=== PATIENT | male | born 1955 | race Caucasian/White ===

== ENCOUNTER 2021-02-11 09:40 | Outpatient (CLI) | payer MEDICARE, SELFPAY ==
--- NOTE | ~2021-02-11 | NM_ITS ---
EXAMINATION: NM halle stress w perfusion DATE: 02/11/2021 13:07 INDICATION: Shortness of breath TECHNIQUE: Rest images were obtained following intravenous administration of 9.1 mCi Tc99m tetrofosmi n (Myoview). The patient was infused intravenously with Lexiscan (Regadenoson). Then, 30 mCi Tc99m te trofosmin (Myoview) was administered intravenously, and stress images were obtained. Data was reconst ructed into short axis and horizontal and vertical long axis SPECT images. Gated SPECT images were al so obtained. COMPARISON: None. FINDINGS: Small mild fixed perfusion defect consistent with infarct involving the mid inferolateral a nd basilar inferolateral segments and the circumflex coronary artery vascular distribution. There is normal left ventricular chamber size, wall motion and ejection fraction. Left ventricular ejection fraction measures 47%. IMPRESSION: 1. Mild nonreversible infarct involving the circumflex coronary artery vascular distribution in the m id inferolateral and basilar inferolateral segments. No reversible ischemia. 2. Left ventricular ejection fraction measuring 47%. Reviewed, dictated and finalized at location A. IMPRESSION: 1. Mild nonreversible infarct involving the circumflex coronary artery vascular distribution in the mid inferolateral and basilar inferolateral segments. No r eversible ischemia. 2. Left ventricular ejection fraction measuring 47%.
--- NOTE | 2021-02-11 09:46 | EST_ITS ---
Patient Info Name: Ayaan Acosta Age: 65 years : 1955 Gender: Male Ht: 72 in Wt: 270 lbs BSA: 2.54 m2 Exam Date: 02/11/2021 11:13 AM Exam Location: [facility] Stress Patient Status: Outpatient Admit Date: 02/11/2021 Staff Ordering Physician: Shakir Glasgow PA-C Attending Provider: Shakir Glasgow PA-C Exercise Technologist: Heidi Sommer RDCS Exercise Physician: Arun Francis DO Exam Type: CA stress halle w NM Study Info Indications R06.02 - Shortness of breath A regadenoson stress test was performed. Summary 1. 1. Negative lexiscan stress test for ischemic ST changes by ECG criteria. 2. 2. Baseline hypertension. 3. 3. Nuclear scan to follow and will be reported separately. Please correlate with it. 4. 4. Patient informed of the above results. Protocol: Lexiscan Stress ECG Details Stage: REST Duration (min): 6 min : 24 sec HR (bpm): 59 SBP (mmHg): 204 DBP (mmHg): 113 Stage: REST Duration (min): 14 min : 55 sec HR (bpm): 57 SBP (mmHg): 204 DBP (mmHg): 113 Stage: STAGE 1 Duration (min): 1 min : 0 sec HR (bpm): 70 SBP (mmHg): 204 DBP (mmHg): 113 Stage: RECOVERY Duration (min): 1 min : 0 sec HR (bpm): 83 SBP (mmHg): 202 DBP (mmHg): 105 Stage: RECOVERY Duration (min): 2 min : 0 sec HR (bpm): 78 SBP (mmHg): 225 DBP (mmHg): 109 Stage: RECOVERY Duration (min): 3 min : 0 sec HR (bpm): 75 SBP (mmHg): 215 DBP (mmHg): 110 Stage: RECOVERY Duration (min): 4 min : 0 sec HR (bpm): 76 SBP (mmHg): 215 DBP (mmHg): 110 Stage: RECOVERY Duration (min): 5 min : 0 sec HR (bpm): 74 SBP (mmHg): 215 DBP (mmHg): 110 Stage: RECOVERY Duration (min): 6 min : 0 sec HR (bpm): 71 SBP (mmHg): 222 DBP (mmHg): 113 Stage: RECOVERY Duration (min): 7 min : 0 sec HR (bpm): 70 SBP (mmHg): 209 DBP (mmHg): 115 Stage: RECOVERY Duration (min): 7 min : 13 sec HR (bpm): 72 SBP (mmHg): 209 DBP (mmHg): 115 Rest HR: 57 bpm Peak HR: 84 bpm Rest Sys BP: 204 mmHg Peak Sys BP: 225 mmHg Max Pred HR: 153 bpm % Max Pred HR: 55 % Target HR: 130 bpm Max RPP: 18,900 bpm*mmHg Termination Reason: Completed protocol Cardiac Symptoms: None Total Time: 1 min : 0 sec Rest Jhaveri BP: 113 mmHg Peak Jhaveri BP: 109 mmHg Total Dose: 0.4 mg Resting ECG Sinus bradycardia, cannot r/o septal infarct, age indeterminate. Stress ECG No ST changes. Arrhythmias None. Report Signatures
== END 2021-02-11 09:41 | disposition home or self-care (01) ==
PROVIDERS: PCP Internal Medicine; Visit Provider Physician Assistant
DX: R06.00 Dyspnea, unspecified (principal); R06.02 Shortness of breath
CPT/HCPCS: 78452; 93017; A9502; J2785

== ENCOUNTER 2021-03-01 08:49 | Outpatient (CLI) | payer MEDICARE, SELFPAY ==
--- NOTE | 2021-03-13 13:10 | WPDHOMESLEEP ---
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 His doctor recommended a sleep study with this history of nocturia and other co-morbidities including hypertension, GERD, and depression. For several months he has had episodes of waking to go to the bathroom 2 or 3 times per night. He does not awaken from sleep feeling short of breath. He rarely awakens at night with heartburn, belching or coughing. He occasionally snores and occasionally is loud enough that others complain about it. He does not have trouble sleep with a cold. He does not wake up gasping for breath at night. He does not have breathing problems at night observed by others. He occasionally sweats excessively at night. He does not notice his heart pounding or beating irregularly night. He occasionally falls asleep during the day, never falls asleep involuntarily. He occasionally falls asleep while driving. He occasionally falls asleep while exerting physical effort. He does not have loss of muscle tone with strong emotion. He does not have daytime difficulties due to excessive sleepiness because he currently is retired. He does not feel paralyzed on waking or falling asleep. He denies having vivid dreamlike scenes upon awakening or falling asleep. He does not feel afraid to go to sleep. He does not have nightmares. He does not remember his dreams. He occasionally has racing thoughts. He constantly feels sad or depressed. He occasionally has anxiety. He does not have muscular tension. He occasionally notices parts his body jerking. He does not kick at night. He occasionally has crawling and aching feelings in his legs. He occasionally experiences leg pain at night. He denies having morning jaw pain and denies grinding his teeth during sleep. He occasionally has bothered by pain during the day, occasionally is awakened by pain at night and occasionally wakes up feeling stiff in the morning. He occasionally wakes up with sore achy muscles and pain in the neck and spine. Normal bedtime is 8:30 p.m. falling asleep within 10 minutes, waking 2 times sometimes 3 times at night to urinate. He is able to return to sleep easily. He wakes the morning at 4:00 a.m.. On the weekends, he goes to bed later, 10:00 p.m. and wakes at 10:00 a.m.. He estimates on average getting 5-6 hours of sleep at night. He takes naps on the weekends. He is not refreshed after a short nap. He feels better in the evening compared other times of day. Habits: No tobacco. No caffeine, alcohol or recreational drugs. [facility] Past Medical History Medical History (Updated 03/13/21 @ 13:18 by Reina Maya MD) Carpal tunnel syndrome Depression Gastro-esophageal reflux disease without esophagitis Hyperlipidemia Hypertension Hypothyroidism Surgical History Surgical History History of tonsillectomy History of total left knee replacement (TKR) Family History Family History Father Family history of lung cancer, Onset Age: 56 Patient's father is Mother Family history of dementia Family history of heart disease in male family member before age 55 Social History Social History Smoking status: Never smoker Second hand tobacco smoke exposure: Yes ( in the home) Alcohol intake: never Substance use: never Medications Home Medications Medication Instructions Recorded Confirmed Type carvedilol 25 mg tablet 25 mg PO Q12H #60
[2021-03-13 13:20] VITALS: BMI 36.6
== END 2021-03-05 10:55 | disposition home or self-care (01) ==
LOC: ANHCSM 03-05 08:49
PROVIDERS: PCP Internal Medicine; Visit Provider Physician Assistant
DX: G47.33 Obstructive sleep apnea (adult) (pediatric) (principal); G47.10 Hypersomnia, unspecified; E66.9 Obesity, unspecified; Z68.36 Body mass index [BMI] 36.0-36.9, adult
CPT/HCPCS: 95806

== ENCOUNTER 2021-04-12 08:50 | Outpatient (CLI) | payer MEDICARE, SELFPAY ==
--- NOTE | 2021-04-29 13:27 | WPDSLEEPSTUD ---
Sleep Study Date of Study: 04/12/21 Ordering Provider: Az Quigley DO Interpreting Physician: Reina Maya MD Sleep Study Type: CPAP Titration Height: 1.83 m Weight: 138.8 kg Body Mass Index: 41.5 Neck Circumference (inches): 18 [place]: 2 Reason for Sleep Study * HST with [facility] March 01, 2021; severe obstructive sleep apnea; AHI 36; 93% of these events were obstructive and 7% were central, profound desaturation to 40% and 78 minutes, 18% of the study below 88%, snoring, average saturation is 82% which suggest underlying lung disease in addition to airway obstruction during sleep. He presents for CPAP titration. 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 His doctor recommended a sleep study with this history of nocturia and other co-morbidities including hypertension, GERD, and depression. For several months he has had episodes of waking to go to the bathroom 2 or 3 times per night. He does not awaken from sleep feeling short of breath. He rarely awakens at night with heartburn, belching or coughing. He occasionally snores and occasionally is loud enough that others complain about it. He does not have trouble sleep with a cold. He does not wake up gasping for breath at night. He does not have breathing problems at night observed by others. He occasionally sweats excessively at night. He does not notice his heart pounding or beating irregularly night. He occasionally falls asleep during the day, never falls asleep involuntarily. He occasionally falls asleep while driving. He occasionally falls asleep while exerting physical effort. He does not have loss of muscle tone with strong emotion. He does not have daytime difficulties due to excessive sleepiness because he currently is retired. He does not feel paralyzed on waking or falling asleep. He denies having vivid dreamlike scenes upon awakening or falling asleep. He does not feel afraid to go to sleep. He does not have nightmares. He does not remember his dreams. He occasionally has racing thoughts. He constantly feels sad or depressed. He occasionally has anxiety. He does not have muscular tension. He occasionally notices parts his body jerking. He does not kick at night. He occasionally has crawling and aching feelings in his legs. He occasionally experiences leg pain at night. He denies having morning jaw pain and denies grinding his teeth during sleep. He occasionally has bothered by pain during the day, occasionally is awakened by pain at night and occasionally wakes up feeling stiff in the morning. He occasionally wakes up with sore achy muscles and pain in the neck and spine. Normal bedtime is 8:30 p.m. falling asleep within 10 minutes, waking twice and sometimes 3 times at night to urinate. He is able to return to sleep easily. He wakes the morning at 4:00 a.m.. On the weekends, he goes to bed later, 10:00 p.m. and wakes at 10:00 a.m.. He estimates on average getting 5-6 hours of sleep at night. He takes naps on the weekends. He is not refreshed after a short nap. He feels better in the evening compared other times of day. Habits: No tobacco. No caffeine, alcohol or recreational drugs. [facility] Past Medical History Medical History (Updated 04/29/21 @ 13:29 by Reina Maya MD) Carpal tunnel syndrome Depression Gastro-esophageal reflux disease without esophagitis Hyperlipidemia Hypertension Hypothyroidism Obstructive sleep apnea Surgical History Surgical History History of tonsillectomy History of total left knee replacement (TKR) Family History Family History Father Family history of lung cancer, Onset Age: 56 Patient's father is Mother Family history of dementia Family history of heart disease in male family member before age 55 Social History Social His
[2021-05-02 16:52] VITALS: BMI 41.5
== END 2021-04-13 06:02 | disposition home or self-care (01) ==
LOC: ANHCSM 08:51
PROVIDERS: PCP Internal Medicine; Visit Provider Internal Medicine
DX: G47.33 Obstructive sleep apnea (adult) (pediatric) (principal)
CPT/HCPCS: 87426; 95811; C9803

== ENCOUNTER 2021-04-12 13:07 | Outpatient (CLI) | payer MEDICARE, SELFPAY ==
[2021-04-12 13:51] LABS: EDCOVIDSCREEN Negative (Negative)
== END 2021-04-12 13:08 | disposition home or self-care (01) ==
LOC: ANHSURGERY 13:12
PROVIDERS: PCP Internal Medicine; Visit Provider Internal Medicine Critical Care Medicine
DX: U07.1 COVID-19 (principal)
CPT/HCPCS: 87426; C9803

== ENCOUNTER → 2021-05-07 02:36 | Outpatient (CLI) | payer MEDICARE, SELFPAY ==
[2021-05-07 18:17] LABS: SARS-CoV-2 RNA PCR Positive
== END ==
PROVIDERS: PCP Internal Medicine; Visit Provider Internal Medicine
DX: U07.1 COVID-19 (principal); J06.9 Acute upper respiratory infection, unspecified
CPT/HCPCS: C9803; U0003; U0005

== ENCOUNTER 2021-05-09 09:00 | Outpatient (RCR) | payer MEDICARE, SELFPAY ==
[2021-05-09 09:10] VITALS: BP 105/75; PULSE 64; RESP 16; TEMP 35.5; O2SAT 91
[2021-05-09] MEDS: diphenhydrAMINE HCl CAP 25 MG CAPSULE PO (09:13)
[2021-05-09] MEDS: FAMOTIDINE 20 MG TABLET PO (09:13)
[2021-05-09] MEDS: ACETAMINOPHEN 325 MG TABLET 650 MG PO (09:13)
--- NOTE | 2021-05-09 09:36 | PC.NURSE ---
Patient instructed on covid treatment and given instruction sheets on Covid 19 discharge instruction and fact sheet on Casirivimab and Imdevimab with understanding stated to instruction. Patient instructed to get Covid injection in 3 months after this treatment. Patient instructed to take 2 Tylenol at approximately 1:30 this afternoon. Patient stated understanding to all instruction.
[2021-05-09 10:49] VITALS: BP 110/70
--- NOTE | 2021-05-10 09:06 | PC.NURSE ---
Patient states that he feels much better after covid infusion.
== END 2021-05-09 11:04 | disposition home or self-care (01) ==
LOC: AMCINF 09:00
PROVIDERS: PCP Internal Medicine; Visit Provider Internal Medicine Hematology & Oncology
DX: Z23 Encounter for immunization (principal); U07.1 COVID-19
CPT/HCPCS: A9270; J7050; M0243

== ENCOUNTER → 2021-06-18 03:35 | Outpatient (CLI) | payer MEDICARE, SELFPAY ==
[2021-06-18 20:46] LABS: SARS-CoV-2 RNA PCR Negative
== END ==
PROVIDERS: PCP Internal Medicine; Visit Provider Internal Medicine Critical Care Medicine
DX: Z20.822 Contact with and (suspected) exposure to COVID-19 (principal)
CPT/HCPCS: C9803; U0003; U0005

== ENCOUNTER → 2021-06-21 07:58 | Outpatient (CLI) | payer MEDICARE, SELFPAY ==
--- NOTE | 2021-07-05 00:56 | WPDSLEEPSTUD ---
Sleep Study Date of Study: 06/21/21 Ordering Provider: Az Quigley DO Interpreting Physician: Reina Maya MD Sleep Study Type: BiPAP Titration Height: 1.83 m Weight: 113.398 kg Body Mass Index: 33.9 Neck Circumference (inches): 19 [place]: 3 Reason for Sleep Study * HST with [facility] March 01, 2021; severe obstructive sleep apnea; AHI 36; 93% of these events were obstructive and 7% were central, profound desaturation to 40% and 78 minutes, 18% of the study below 88%, snoring, average saturation is 82% which suggest underlying lung disease in addition to airway obstruction during sleep. He presents for CPAP titration. * full night CPAP /BiPAP April 12, 2021; titration shows improvement without optimal pressure; he was tested on CPAP pressures 5 cm through 16 cm with O2 at 1-2 L/min at pressures 5-6 cm, and Bilevel pressures 18/14 and 20/16 with persistent hypoxemia and snoring. He needs to return to the sleep lab for bilevel titration starting at 18/14 with a 30 minute ramp with a sleep aid available if needed for him to take at sleep onset. 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 His doctor recommended a sleep study with this history of nocturia and other co-morbidities including hypertension, GERD, and depression. For several months he has had episodes of waking to go to the bathroom 2 or 3 times per night. He does not awaken from sleep feeling short of breath. He rarely awakens at night with heartburn, belching or coughing. He occasionally snores and occasionally is loud enough that others complain about it. He does not have trouble sleep with a cold. He does not wake up gasping for breath at night. He does not have breathing problems at night observed by others. He occasionally sweats excessively at night. He does not notice his heart pounding or beating irregularly night. He occasionally falls asleep during the day, never falls asleep involuntarily. He occasionally falls asleep while driving. He occasionally falls asleep while exerting physical effort. He does not have loss of muscle tone with strong emotion. He does not have daytime difficulties due to excessive sleepiness because he currently is retired. He does not feel paralyzed on waking or falling asleep. He denies having vivid dreamlike scenes upon awakening or falling asleep. He does not feel afraid to go to sleep. He does not have nightmares. He does not remember his dreams. He occasionally has racing thoughts. He constantly feels sad or depressed. He occasionally has anxiety. He does not have muscular tension. He occasionally notices parts his body jerking. He does not kick at night. He occasionally has crawling and aching feelings in his legs. He occasionally experiences leg pain at night. He denies having morning jaw pain and denies grinding his teeth during sleep. He occasionally has bothered by pain during the day, occasionally is awakened by pain at night and occasionally wakes up feeling stiff in the morning. He occasionally wakes up with sore achy muscles and pain in the neck and spine. Normal bedtime is 8:30 p.m. falling asleep within 10 minutes, waking twice and sometimes 3 times at night to urinate. He is able to return to sleep easily. He wakes the morning at 4:00 a.m.. On the weekends, he goes to bed later, 10:00 p.m. and wakes at 10:00 a.m.. He estimates on average getting 5-6 hours of sleep at night. He takes naps on the weekends. He is not refreshed after a short nap. He feels better in the evening compared other times of day. Habits: No tobacco, caffeine, alcohol, or recreational drugs. [facility] Past Medical History Medical History Carpal tunnel syndrome Depression Gastro-esophageal reflux disease without esophagitis Hyperlipidemia Hypertension Hypothyroidism Obstructive sleep apnea Surgical History Surgical History (Reviewed 07/05/21
[2021-07-05 00:57] VITALS: BMI 33.9
== END ==
LOC: ANHCSM 08:00
PROVIDERS: PCP Internal Medicine; Visit Provider Internal Medicine
DX: G47.30 Sleep apnea, unspecified (principal)
CPT/HCPCS: 95811

== ENCOUNTER 2024-01-06 10:00 | Outpatient (RCR) | payer MEDICARE, SELFPAY ==
--- NOTE | 2023-12-03 13:30 | OPREHPOC ---
Outpatient Therapy Plan of Care This is a Multidisciplinary Plan of Care that may contain components documented by all disciplines (PT, OT, and ST.) PT Problem 1 PT Problem #1 Knowledge Deficit PT Goal 1 Goal 1*indep with HEP PT Problem 2 PT Problem #2 Pain PT Goal 1 Goal 1* pain at worst 4/10 2* self assessment LE functional scale of 20% limitation PT Problem 3 PT Problem #3 Impaired Flexibility PT Goal 1 Goal increase flexibility of R hip/knee to improve mobility and position of knee: 1* hamstring length with supine SLR 50' 2* anterior hip/quad length with prone knee flexion 100' PT Problem 4 PT Problem #4 Impaired Strength PT Goal 1 Goal increase strength of R LE to improve gait and mobility skills: pt perform 20 reps with good control 1* side lying hip abduction 2* side lying hip adduction 3* prone hip extension 4* single leg standing 20 seconds with good control
--- NOTE | 2023-12-03 13:31 | PTOPEVAL1 ---
Assessment and note entered by Adriana Campos, PT Evaluation Information Assessment Status Evaluation Diagnosis R knee OA Onset Jul 2023 Subjective Information chronic issues with R knee pain; worse past 4 months, more problems with walking and doing things; dr did knee injection 2 days ago and steroid pill- knee less pain; has had the L TKR- over 5 yr ago; thinks he may need R TKR; does not do any fitness or exercises for knee/LEs Activity: retired- [employer]; indep with all home and self care tasks, live alone. does not use assistive device. Reported Pain Level Pain Score Self Report Additional Pain Score Comments pain rating past week 0-6/10; hurts all over knee increase pain: walking about 30 minutes decrease pain: sit, rest; sleeping disrupted by knee pain---awaken 3/ night due to pain the injection received 2 days ago and new script for steroid pill have decreased his pain Assessment PT Clinical Summary Ayaan has the diagnosis of R knee OA. He had an injection and pain has decreased. In the past, he has had L TKR and thinks his R knee is ready for replacement. LE functional scale self rating is 31% limitation in activity level. His walking is limited due to pain in knee. With the evaluation: he has tightness of R hamstring, quad/anterior hip musculature with weakness over hip abduction, hip adduction, hip extension motions and single leg standing tolerance. his 5 reps sit/stand time was WNL but without good control and 2 minute walking test distance of 460'; his R knee AROM in sitting is ( -10') to 105', without an increase in pain. Skilled PT services are indicated to increase flexibility and strength of R hip and knee; modalities PRN for pain control with education for HEP. Plan of Care Interventions Electrical Stimulation,Hot Pack/Cold Pack,Manual Therapy,Neuro Re-education,Patient Education,Therapeutic Activities,Therapeutic Exercise,Ult
--- NOTE | 2024-01-06 10:43 | PTOPDC ---
Assessment and note entered by Adriana Campos, PT Discharge Information Assessment Status Discharge Diagnosis R knee OA Onset Jul 2023 Subjective Information problems getting up and out of bed, feel like knee going to give out on me; to see this afternoon; thinking I need a knee replacement; Reported Pain Level Pain Score Self Report Additional Pain Score Comments pain range in the past week 0-6/10; walking about 15 minutes with shopping and then need to sit down; sleeping varies, some problems with knee pain and some problems staying asleep; Assessment PT Clinical Summary Ayaan has received 7 PT sessions. Compared to the initial evaluation: pain rating the same at 0-6/10; reported walking tolerance decreased from 30 minutes to 15 minutes; increase strength with mat exercises; increase hamstring flexibility, self assessment LE functional scale is worse, from 31 to 49% limitation; active R knee ROM in sitting (-15') to 110' with pain at both end ranges of motion. Education completed for HEP. The goals were partially met. Discharge PT services. Plan of Care PT Services Indicated No
== END 2024-01-06 12:32 | disposition home or self-care (01) ==
LOC: ANHPT 10:00
PROVIDERS: PCP Internal Medicine; Visit Provider Orthopaedic Surgery
DX: M17.11 Unilateral primary osteoarthritis, right knee (principal)
CPT/HCPCS: 97110; 97140; 97161; 97530

== ENCOUNTER 2024-01-28 09:46 | Outpatient (CLI) | payer MEDICARE, SELFPAY ==
--- NOTE | 2024-01-28 10:46 | ECG_ITS ---
SEE SCANNED COPY FOR CONFIRMED REPORT MTDD
[2024-01-28 11:13] LABS: Basophils Percent Auto 0.8 % (0.2-1.2); Eosinophils Absolute Auto 0.4 K/mm3 (0-0.3); Eosinophils Percent Auto 7.2 % (0-4.4); Hemoglobin 14.1 g/dL (14.0-18.0); Immature Granulocyte Absolute 0.01 K/mm3 (0.00-0.031); Immature Granulocyte Percent A 0.2 % (0-0.5); Lymphocytes Absolute Auto 0.83 K/mm3 (0.9-3.2); Mean Corpuscular HGB Conc 34.4 g/dl (32-36); Mean Corpuscular Hemoglobin 30.9 pg (26-34); Mean Corpuscular Volume 89.9 fl (80-100); Mean Platelet Volume 8.6 fl (7.4-10.4); Monocytes Absolute Auto 0.6 K/mm3 (0.1-0.6); Monocytes Percent Auto 12.3 % (2.6-8.5); Neutrophils Absolute Auto 3.1 K/mm3 (1.3-6.7); Neutrophils Percent Auto 62.5 % (45.5-73.1); Platelet Count Result 178 k/mm3 (150-375); Red Blood Count 4.56 M/mm3 (4.6-6.20); Red Cell Distribution Width 13.1 % (11.5-14.5); White Blood Count 4.9 K/mm3 (4.5-10.0)
[2024-01-28 11:25] LABS: Albumin Level 4.3 g/dL (3.5-5.1); Estimated Glomerular Filt Rate 37; Glucose 114 mg/dL (65-110)
[2024-01-28 11:28] LABS: Urine Cotinine NEGATIVE
[2024-01-28 11:30] LABS: Hemoglobin A1C 5.6 % (<5.7)
== END 2024-01-28 09:47 | disposition home or self-care (01) ==
PROVIDERS: PCP Internal Medicine; Visit Provider Orthopaedic Surgery
DX: Z01.818 Encounter for other preprocedural examination (principal); M17.11 Unilateral primary osteoarthritis, right knee; R00.1 Bradycardia, unspecified; R94.31 Abnormal electrocardiogram [ECG] [EKG]
CPT/HCPCS: 80307; 82040; 82565; 82947; 83036; 85025; 93005

== ENCOUNTER 2024-02-18 13:58 | Outpatient (CLI) | payer MEDICARE, SELFPAY ==
--- NOTE | ~2024-02-18 | US_ITS ---
EXAMINATION: US renal BI DATE: 02/18/2024 14:16 INDICATION: Chronic kidney disease stage III B. TECHNIQUE: Multiple ultrasound grayscale images of the kidneys were obtained. COMPARISON: None. FINDINGS: The right kidney measures 11.0 x 4.8 x 5.3 cm. The left kidney measures 11.6 x 4.1 x 4.6 cm. The kidn eys demonstrate normal parenchymal echogenicity. There are cysts in the kidneys measuring up to 4.8 c m on the left. There is no hydronephrosis. The bladder is normal. There is a 2.1 cm mass in the left upper quadrant. IMPRESSION: 1. Normal kidney sizes. No hydronephrosis. 2. 2.1 cm mass in the left upper quadrant. The differential diagnosis includes enlarged lymph node, p eritoneal metastatic disease, thrombosed aneurysm, and splenule. Abdomen CT without contrast is recom mended given the patient's decreased kidney function. Reviewed, dictated and finalized at location E. IMPRESSION: 1. Normal kidney sizes. No hydronephrosis. 2. 2.1 cm mass in the left upper quadrant. The differential diagnosis includes enlarged lymph node, peritoneal metastatic disease, thrombosed aneurysm, and sp lenule. Abdomen CT without contrast is recommended given the patient's decrease d kidney function.
== END 2024-02-18 13:59 ==
LOC: GOSHIMG 14:00
PROVIDERS: PCP Internal Medicine; Visit Provider Internal Medicine Nephrology
DX: N28.89 Other specified disorders of kidney and ureter (principal); N18.32 Chronic kidney disease, stage 3b
CPT/HCPCS: 76775

== ENCOUNTER 2024-02-25 13:38 | Outpatient (CLI) | payer MEDICARE, SELFPAY ==
--- NOTE | ~2024-02-25 | CT_ITS ---
EXAMINATION: CT abdomen wo con DATE: 02/25/2024 13:56 INDICATION: Abnormal radiologic findings on renal ultrasound TECHNIQUE: Computed tomography (CT) of the abdomen and pelvis was performed without intravenous contr ast. Automated exposure control and iterative reconstruction technique were employed. The dose-length product was 836.60 mGy-cm. COMPARISON: None FINDINGS: Lung bases are clear. Heart size is normal. Aortic valve and mitral annular calcification. Calcified right hilar lymph nodes consistent with old granulomatous disease. Liver, gallbladder, spleen and yuko ateral adrenal glands are normal. 2.6 x 2.1 cm cystic lesion at the tail of pancreas. Mild to moderat e likely age-related bilateral renal cortical atrophy with bilateral fluid attenuation renal cysts th e largest on the left measuring 4.9 cm. Visualized portion of the bowels including the appendix are n ormal. No pathologically enlarged abdominal or pelvic lymphadenopathy. IMPRESSION: 1. 2.6 x 2.1 cm cystic lesion at the tail of the pancreas which appears simple on both CT and prior u ltrasound. Recommend 6 month follow-up pre and postcontrast MRI for pancreas protocol CT. Reviewed, dictated and finalized at location A. IMPRESSION: 1. 2.6 x 2.1 cm cystic lesion at the tail of the pancreas which appears simple on both CT and prior ultrasound. Recommend 6 month follow-up pre and postcontra st MRI for pancreas protocol CT.
== END 2024-02-25 13:39 ==
LOC: GOSHIMG 13:39
PROVIDERS: PCP Internal Medicine; Visit Provider Internal Medicine
DX: K86.2 Cyst of pancreas (principal); R93.421 Abnormal radiologic findings on diagnostic imaging of right kidney; R93.422 Abnormal radiologic findings on diagnostic imaging of left kidney
CPT/HCPCS: 74150

== ENCOUNTER 2024-03-15 08:10 | Outpatient (CLI) | payer MEDICARE, SELFPAY ==
[2024-03-15 08:46] LABS: Estimated Glomerular Filt Rate 35
[2024-03-15 08:58] LABS: Prothrombin Time 13.4 Seconds (11.1-14.7)
[2024-03-15 08:59] LABS: Partial Thromboplastin Time 35.6 Seconds (22.3-36.8)
== END 2024-03-15 08:11 | disposition home or self-care (01) ==
PROVIDERS: Anesthesiology; PCP Internal Medicine; Visit Provider Orthopaedic Surgery
DX: Z01.812 Encounter for preprocedural laboratory examination (principal); M17.11 Unilateral primary osteoarthritis, right knee; N18.9 Chronic kidney disease, unspecified
CPT/HCPCS: 36415; 82565; 85610; 85730; 86850; 86900; 86901

== ENCOUNTER 2024-03-21 00:54 | Day surgery (SDC) | payer MEDICARE, SELFPAY ==
[2024-01-28 10:01] VITALS: BMI 38.9
--- NOTE | 2024-01-28 10:23 | PC.NURSE ---
Report to the Outpatient Waiting Room, entrance under the green pavilion located off [facility], at time _0700 on date _02/17/24 . Planned Procedure Time: 0900 . Time changes happen often and if your time is changed the preop area will call you the afternoon before. - You and your visitor will be asked to self-screen and do not enter if you have any COVID symptoms. - A mask is optional within the hospital at this time. Patients may have clear liquids (water, carbonated beverages, clear teas, apple juice) until 3 hours prior to surgery( 6:00 AM) with a maximum of 20 ounces. - No food from midnight until time of surgery - Infants may have breast milk until 4 hours before surgery, formula 6 hours prior to surgery. - Children will be allowed to drink immediately following surgery. If applicable, please bring a bottle or sippy cup to assist with drinking. Juice, water, soda, and popsicles are readily available. For infants on formula, please bring formula the day of surgery. Pacifiers are allowed. Take the following medications with a SIP of water the morning of surgery: ___CARVEDILOL,LEVOTHYROXINE DO NOT STOP ANY OF YOUR OTHER PRESCRIPTION MEDICATIONS PRIOR TO SURGERY ?EXCEPT THE FOLLOWING Medications to discontinue per physician __HOLD NABUMETONE PER DR CHADWICK. TOTAL JOINT CLASS 02/03/24 AT 10 AM Please no make-up, nail bolivian, hairspray, perfume, deodorant, or body powder the day of surgery. No jewelry (including any body piercings) or valuables the day of surgery, leave them at home. Please take a shower or bath the night before, or the morning of, surgery with an antibacterial soap. Wear comfortable, loose fitting clothing. Children are encouraged to wear pajamas. - Jewelry must be removed prior to entering the operating room. Rings and piercings that are not removed may be cut off. - The hospital will not accept responsibility for valuables. - Please leave all valuables, including medications, at home the day of surgery. If you are going home after surgery, a licensed vibratory pile driver must drive you home. - NO public transportation without another adult if you receive anesthesia. - We recommend that an adult stay with you for 24 hours following discharge. - We also recommend that you do not drive, make important decision, drink alcoholic beverages, or take any drugs that were not prescribed by your health care provider for at least 24 hours after your discharge time. Follow any additional instructions given to you from your surgeon. If you or anyone in your household have experienced Covid symptoms in the past week, please notify your surgeon or the nurse liaison at the phone number below for possible testing. VERBAL AND WRITTEN instructions given to __PATIENT and asked if any additional questions and then verbalized understanding. Patient advised to call surgeon office or pre surgery nurse liaison [phone] if any additional questions.
[2024-01-28 10:45] VITALS: BP 188/98; PULSE 65; RESP 18; TEMP 36.9; O2SAT 97
--- NOTE | 2024-03-10 10:42 | PC.NURSE ---
Report to the Outpatient Waiting Room, entrance under the green pavilion located off [facility], at time _9:30 AM on date _03/21/24 . Planned Procedure Time: __11:30 AM . Time changes happen often and if your time is changed the preop area will call you the afternoon before. - You and your visitor will be asked to self-screen and do not enter if you have any COVID symptoms. - A mask is optional within the hospital at this time. Patients may have clear liquids (water, carbonated beverages, clear teas, apple juice) until 3 hours prior to surgery( 8:30 AM) with a maximum of 20 ounces. - No food from midnight until time of surgery - Infants may have breast milk until 4 hours before surgery, infant formula 6 hours prior to surgery. - Children will be allowed to drink immediately following surgery. If applicable, please bring a bottle or sippy cup to assist with drinking. Juice, water, soda, and popsicles are readily available. For infants on formula, please bring formula the day of surgery. Pacifiers are allowed. Take the following medications with a SIP of water the morning of surgery: __AMLODIPINE,CARVEDILOL,LEVOTHYROXINE DO NOT STOP ANY OF YOUR OTHER PRESCRIPTION MEDICATIONS PRIOR TO SURGERY ?EXCEPT THE FOLLOWING Medications to discontinue per physician ____HOLD NABUMETONE PER DR CHADWICK, Please no make-up, nail lithuanian, hairspray, perfume, deodorant, or body powder the day of surgery. No jewelry (including any body piercings) or valuables the day of surgery, leave them at home. Please take a shower or bath the night before, or the morning of, surgery with an antibacterial soap. Wear comfortable, loose fitting clothing. Children are encouraged to wear pajamas. - Jewelry must be removed prior to entering the operating room. Rings and piercings that are not removed may be cut off. - The hospital will not accept responsibility for valuables. - Please leave all valuables, including medications, at home the day of surgery. If you are going home after surgery, a licensed motor coach bus driver must drive you home. - NO public transportation without another adult if you receive anesthesia. - We recommend that an adult stay with you for 24 hours following discharge. - We also recommend that you do not drive, make important decision, drink alcoholic beverages, or take any drugs that were not prescribed by your health care provider for at least 24 hours after your discharge time. Follow any additional instructions given to you from your surgeon. If you or anyone in your household have experienced Covid symptoms in the past week, please notify your surgeon or the nurse liaison at the phone number below for possible testing. Telephone instructions given to __PATIENT and asked if any additional questions and then verbalized understanding. Patient advised to call surgeon office or pre surgery nurse liaison [phone] if any additional questions.
[2024-03-10 10:56] VITALS: BMI 38.9
--- NOTE | 2024-03-17 18:10 | PM.IMHP ---
H&P: HPI History of Present Illness Date/Time: 03/17/24 18:10 Chief Complaint: Patient has Osteoarthritis Right Knee. He has failed conservative treatment. He has bone on bone arthritis. Review of Systems Musculoskeletal: Musculoskeletal: Reports myalgias, Reports arthralgias and Reports joint swelling PMFSH Past Medical History Medical History Carpal tunnel syndrome Depression Gastro-esophageal reflux disease without esophagitis Hyperlipidemia Hypertension Hypothyroidism Obstructive sleep apnea Surgical History Surgical History History of tonsillectomy History of total left knee replacement (TKR) Family History Family History Father Family history of lung cancer, Onset Age: 56 Patient's father is Mother Family history of dementia Family history of heart disease in male family member before age 55 Alzheimers disease Sibling No problems noted. Social History Social History (Updated 02/11/24 @ 11:53 by Marisel Hough MA) Smoking status: Never smoker Second hand tobacco smoke exposure: Yes ( was a smoker) Additional smoking assessment comments: DENIES ANY FORM OF TOBACCO USE Alcohol intake: never Substance use: never Substance use type: does not use Do You Feel Safe in your Home?: Yes Lack of Transportation: No Lack of Food: Never True Current Housing: I Have Housing Concerned About Future Housing: No Difficulty Paying Gas/Electric Bills: No Difficulty Paying for Meds: No Currently Unemployed: YES Education: High School Diploma/GED Difficulty w/ Childcare or Family Care: No Living arrangements: alone Occupation/Education: retired Additional occupation/education comments: [employer] Gender identity (if verbalized by the patient): Male Spiritual care concerns: No Meds Home Medications and Allergies Home Medications Medication Instructions Recorded Confirmed Type cyclobenzaprine 10 mg tablet 10 mg PO .HS PRN muscle spasm #30 12/07/23 03/10/24 Rx tabs omeprazole 20 mg capsule,delayed 20 mg PO DAILY #30 caps 12/07/23 03/10/24 Rx release allopurinol 300 mg tablet 300 mg PO DAILY #90 tabs 12/24/23 03/10/24 Rx ramipril 10 mg capsule 10 mg PO DAILY #90 caps 12/25/23 03/10/24 Rx rosuvastatin 5 mg tablet (Crestor) 5 mg PO DAILY #90 tabs 02/09/24 03/10/24 Rx amlodipine 5 mg tablet 5 mg PO DAILY 02/11/24 03/10/24 History carvedilol 25 mg tablet 25 mg PO Q12H #180 tabs 02/12/24 03/10/24 Rx levothyroxine 75 mcg tablet 75 mcg PO DAILY #90 tabs 03/10/24 Rx nabumetone 750 mg tablet See Rx Instructions .Route 03/10/24 Rx .COMPLEX #60 tabs rivaroxaban 10 mg tablet (Xarelto) 10 mg PO DAILY PE prophylaxis s/p 03/16/24 Rx knee replacement 10 days #10 tabs Allergies Allergy/AdvReac Type Severity Reaction Status Date / Time No Known Allergies Allergy Verified 03/10/24 10:27 Exam Narrative: ROM 5-110. Varus deformity. Patient is neurologically intact. He walks with an antalgic gait. Eyes: General: appearance normal, both eyes and all related structures Neck: Neck: supple Resp: Effort & Inspection: normal respiratory effort Cardio: Rate: regular rate Rhythm: regular rhythm Assessment and Plan Assessment and plan (1) Osteoarthritis of right knee: Code(s): M17.11 - Unilateral primary osteoarthritis, right knee Status: Acute Plan Patient has osteoarthritis Right knee. He has bone on bone changes and has failed conservative treatment. I discussed risks, benefits, limitations, and alternatives in detail. Will proceed per his request.
[2024-03-21] VITALS (16 sets, daily range): BP systolic 125–167; BP diastolic 70–90; PULSE 57–80; RESP 9–18; TEMP 35.9–36.6; O2SAT 92–100
--- NOTE | ~2024-03-21 | XR_ITS ---
EXAMINATION: [id number] DATE: 03/21/2024 10:31 INDICATION: Right total knee arthroplasty. Postop. TECHNIQUE: 2 views of right knee were obtained. COMPARISON: None. FINDINGS: There is a total right knee arthroplasty with patellar resurfacing in near-anatomic alignme nt. No fracture. There is gas in the joint and soft tissues, consistent with recent surgery. Anterior skin bubba are noted. IMPRESSION: 1. Total right knee arthroplasty in near-anatomic alignment. Reviewed, dictated and finalized at location E.
[2024-03-21] MEDS: LACTATED RINGERS 1,000 ML 30 ML IV CONT ×2 (06:46→10:13)
[2024-03-21] MEDS: ACETAMINOPHEN 500 MG TABLET 1000 MG PO (06:46)
[2024-03-21] MEDS: VANCOMYCIN 2,000 MG/NS 500 ML 2,000 MG/500 ML BAG 250 MG IVPB (07:00)
--- NOTE | 2024-03-21 07:04 | WPDHPUPDATE1 ---
History and Physical Update Update Date/Time: 03/21/24 07:04 History and Physical has been reviewed, including an updated exam of the patient. There are NO changes in the patient's condition. Risks, benefits, and alternatives have been discussed and questions answered. Patient agrees to proceed with procedure. Reiterated increased risk of infection and wound problems with selling and mild stasis changes in legs
[2024-03-21] MEDS: TRANEXAMIC ACID 1,000MG/ISO100 1,000 MG/100 ML BAG 200 MG IVPB (07:10)
--- NOTE | 2024-03-21 07:26 | WPDANESEPPF ---
Anes - Initial Pre Proc Eval Procedure: Operation Date: 03/21/24 07:30 Proposed Procedures p Right Total Knee Arthroplasty - Harsha Spence MD Date/Time: 03/21/24 07:26 Surgeon: Harsha Spence MD Pre Op Diagnosis: OA Rt Knee Patient Data Age: 68 Gender: M Height: 1.82 m Weight: 123.5 kg Last Vital Signs Temp 97.8 F 03/21/24 07:12 Pulse 57 L 03/21/24 07:12 Resp 16 03/21/24 07:12 BP 167/89 H 03/21/24 07:12 Pulse Ox 100 03/21/24 07:12 O2 Del Method Room Air 03/21/24 07:12 Allergies Allergy/AdvReac Type Severity Reaction Status Date / Time No Known Allergies Allergy Verified 03/21/24 06:16 Home Medications Medication Instructions Recorded Confirmed Type cyclobenzaprine 10 mg tablet 10 mg PO .HS PRN muscle spasm #30 12/07/23 03/10/24 Rx tabs omeprazole 20 mg capsule,delayed 20 mg PO DAILY #30 caps 12/07/23 03/21/24 Rx release allopurinol 300 mg tablet 300 mg PO DAILY #90 tabs 12/24/23 03/10/24 Rx ramipril 10 mg capsule 10 mg PO DAILY #90 caps 12/25/23 03/21/24 Rx rosuvastatin 5 mg tablet (Crestor) 5 mg PO DAILY #90 tabs 02/09/24 03/21/24 Rx amlodipine 5 mg tablet 5 mg PO DAILY 02/11/24 03/21/24 History carvedilol 25 mg tablet 25 mg PO Q12H #180 tabs 02/12/24 03/21/24 Rx levothyroxine 75 mcg tablet 75 mcg PO DAILY #90 tabs 03/10/24 03/21/24 Rx nabumetone 750 mg tablet See Rx Instructions .Route 03/10/24 03/21/24 Rx .COMPLEX #60 tabs rivaroxaban 10 mg tablet (Xarelto) 10 mg PO DAILY PE prophylaxis s/p 03/16/24 Rx knee replacement 10 days #10 tabs Patient hx anesthesia problems: none Family hx anesthesia problems: none Results Review: All pre-operative results and documents have been reviewed as part of the pre-operative evaluation. [facility] Past Medical History Medical History Carpal tunnel syndrome Depression Gastro-esophageal reflux disease without esophagitis Hyperlipidemia Hypertension Hypothyroidism Obstructive sleep apnea Surgical History Surgical History History of tonsillectomy History of total left knee replacement (TKR) Family History Family History Father Family history of lung cancer, Onset Age: 56 Patient's father is Mother Family history of dementia Family history of heart disease in male family member before age 55 Alzheimers disease Sibling No problems noted. Social History Social History Smoking status: Never smoker Second hand tobacco smoke exposure: Yes ( was a smoker) Additional smoking assessment comments: DENIES ANY FORM OF TOBACCO USE Alcohol intake: never Substance use: never Substance use type: does not use Do You Feel Safe in your Home?: Yes Lack of Transportation: No Lack of Food: Never True Current Housing: I Have Housing Concerned About Future Housing: No Difficulty Paying Gas/Electric Bills: No Difficulty Paying for Meds: No Currently Unemployed: YES Education: High School Diploma/GED Difficulty w/ Childcare or Family Care: No Living arrangements: alone Occupation/Education: retired Additional occupation/education comments: [employer] Gender identity (if verbalized by the patient): Male Spiritual care concerns: No Anes - Eval Final PreProcedure Day of Procedure 03/21/24 07:26 Patient weight: obese Heart: regular rate and rhythm Lungs: clear to auscultation Airway: Mallampati scale class II and special considerations (Teeth in very poor condition, many missing and lower incisor is loose. ) Neurological: alert and oriented Last oral intake: >/= 8 hours ASA classification: III Emergent: no Anesthetic plan: proceed Anesthesia type and monitoring: general LMA and standard monito
--- NOTE | 2024-03-21 07:29 | WPDANESPNB ---
Anes - Peripheral Nerve Block Date/Time: 03/21/24 07:29 I have discussed with the patient/family/POA the placement of a peripheral nerve block for post-operative pain management, including associated risks, benefits, complications, and side effects. Alternative methods of post-operative analgesia were detailed. Questions were solicited and answers provided to the satisfaction of the patient/family/POA. Time-Out: A pre-procedural Time-Out was completed immediately before starting the procedure and confirmed: Patient Identification, Site, Procedure, Patient Position and the Availability of Requisite Equipment. Clinical Indications: Acute post-operative pain management requested by the operative surgeon. Nerve Block Insertion Note Anes-nerve block: adductor canal right Patient position: supine Skin prep: chlorhexidine Needle: 22 gauge, stimulating, insulated echogenic needle. Needle length: 80 mm Technique: ultrasound Injectate: other (Bupiv 0.5%, 15 mls. ) Observations: tolerated well Procedure start time:: Procedure end time::
[2024-03-21] MEDS: ceFAZolin 3 GM/D5W 100 ML 100 ML IVPB (07:30)
[2024-03-21] MEDS: SODIUM CHLORIDE 0.9% IV 37.7 ML, MORPHINE SULFATE INJ (*CRX) 2 MG, ROPivacaine HCL 1% 2... INFILTRATE (08:17)
--- NOTE | 2024-03-21 09:41 | P.OP_ITS ---
Procedure Note - Detailed Date of Procedure 03/21/24 Pre-op Diagnosis Osteoarthritis RIGHT Knee Post-op Diagnosis Same Procedure Performed RIGHT total knee arthroplasty Surgeon Harsha Spence MD Puppet Maker Reta Snyder Anesthesia General Indications Pain and Arthritis Description of Procedure The patient was brought to operating room #7. A general anesthetic was administered. Placed on the operating table and sterilely prepped and draped in usual manner. A longitudinal incision was made. Tourniquet inflated to 300 mmHg for a total of 65 minutes. Dissection was carried down to the fascia. Medial parapatellar incision was made and the patella subluxated laterally. Patella cut from 30 to 20 mm and sized for a 34 mm button. The tibia was cut perpendicular to the long axis and femur cut in 5 degrees of valgus. A 72.7 femur trialed. 75 tibia was felt to fit the best. The soft tissues balanced, hemostasis obtained. All [address], 75 tibia, 72.5 femur, 34mm patella, and 10 () mm poly. Motion was 0-125 degrees with good stability in both flexion and extension. The wound was closed with #2 Vicryl, 2- 0 Vicryl and bubba. The case was much more difficult than normal because of the patient's size and stiffness of the tissues. [employer] Estimated Blood Loss 200 Drains No Packing No Pathology None sent Complications No immediate complications Condition Stable Disposition PACU [facility] Billing Surgery - Charge Forward: Surgery Billing ([id number] Total Knee)
--- NOTE | 2024-03-21 10:19 | SUR.PHASEI ---
PORTABLE XRAY OF RIGHT KNEE IN PROGRESS.
[2024-03-21] MEDS: fentaNYL CITRATE INJ (*CRX) 100 MCG/2 ML VIAL 25 MCG IV PUSH ×4 (10:33→10:57)
--- NOTE | 2024-03-21 12:08 | ADMGEN ---
This patient, Ayaan Acosta Jr., was admitted to 3 Med Surg Room 312-01. Patient/family oriented to hospital policies and general routines including ID bracelet, bed and alarms, visiting hours, pain management, procedures, bathroom and other care routines, personal items, smoking policy, room service/diet, and visiting hours. Information on how to activate the Rapid Response Team has been discussed. Patient/Family are encouraged to report perceived risks to care and to ask questions if they do not understand what they are told or what they should do.
[2024-03-21] MEDS: HYDROcodone/acetaminophen (*CRX) 5-325 MG TABLET 1 TAB PO (12:31)
--- NOTE | 2024-03-21 15:55 | WPDCN ---
Assessment and Plan Assessment and plan (1) Osteoarthritis of right knee: Code(s): M17.11 - Unilateral primary osteoarthritis, right knee Status: Acute Assessment and Plan: Postoperative day 0 status post right total knee arthroplasty. Wound care, pain control, and DVT prophylaxis deferred to Dr. Spence. (2) Hypertension: Code(s): I10 - Essential (primary) hypertension Status: Acute Assessment and Plan: Blood pressures were reviewed and they have been stable postoperatively. Continue ramipril, carvedilol, and amlodipine. (3) Hypothyroidism: Code(s): E03.9 - Hypothyroidism, unspecified Status: Acute Assessment and Plan: Continue levothyroxine and check TSH. (4) Obstructive sleep apnea on CPAP: Code(s): G47.33 - Obstructive sleep apnea (adult) (pediatric) Status: Acute Assessment and Plan: CPAP will be provided for the patient to use while hospitalized. (5) Gastro-esophageal reflux disease without esophagitis: Code(s): K21.9 - Gastro-esophageal reflux disease without esophagitis Status: Acute Assessment and Plan: Continue PPI. Plan Thank you for allowing us to participate in this patient's care. Please do not hesitate to contact us with any questions. HPI Data of Consult Date/Time: 03/21/24 15:15 Requesting Physician: Harsha Spence MD Consult Narrative Reason for consult: Medical management. Narrative: This is a 68-year-old male with with osteoarthritis, gout, hypertension, hypothyroidism, chronic kidney disease stage 3, obstructive sleep apnea on CPAP, and gastroesophageal reflux disease whom the hospitalist service has been consulted for help managing his medical conditions postoperatively. He presented today for elective right knee arthroplasty due to ongoing pain despite conservative outpatient treatment. Surgery was performed under general anesthesia with no immediate complications documented an estimated blood loss of 200 mL. He is doing quite well after surgery. Pain is well controlled. He is eating and drinking without issue. He denies paresthesias, skin color, and temperature changes distal to the surgical site. He also denies fever, chills, sweats, chest pain, pleuritic pain, shortness a breath, nausea, and vomiting. Regarding his chronic medical conditions, he believes they are well controlled on home medication. He uses CPAP at nighttime. Denies personal and family history of venous thromboembolism. He lives at home with his father in law who will be helping him out once he returns home. Review of Systems Review of Systems: 12 systems were reviewed and are negative except for as per HPI. [facility] Past Medical History Medical History (Updated 03/21/24 @ 16:00 by Teresa Curry PA-C) Depression Gastro-esophageal reflux disease without esophagitis Gout Hyperlipidemia Hypertension Hypothyroidism Obstructive sleep apnea Obstructive sleep apnea on CPAP Osteoarthritis Stage 3b chronic kidney disease Surgical History Surgical History (Updated 03/21/24 @ 15:59 by Teresa Curry PA-C) History of arthroplasty of left knee (11/2014) History of arthroplasty of right knee (03/21/24) History of bilateral carpal tunnel release History of tonsillectomy Family History Family History Father Family history of lung cancer, Onset Age: 56 Patient's father is Mother Family history of dementia Family history of heart disease in male family member before age 55 Alzheimers disease Sibling No problems noted. Social History Social History (Updated 03/21/24 @ 16:00 by Teresa Curry PA-C) Social History: Surrogate medical decision maker: Sean Michaels. Code status: Full code. Smoking status: Never smoker Second hand tobacco smoke exposure: Yes ( was a smoker) A
[2024-03-21] MEDS: ceFAZolin 2 GM/D5W 50 ML 2 GM/50 ML BAG IVPB ×2 (17:32→23:36)
[2024-03-21] MEDS: HYDROcodone/acetaminophen (*CRX) 7.5-325 MG TABLET 1 TAB PO ×2 (17:33→21:00)
[2024-03-21] MEDS: CELECOXIB 200 MG CAPSULE PO (17:38)
[2024-03-21] MEDS: SENNA/DOCUSATE SODIUM TABLET 2 TAB PO (17:38)
[2024-03-21] MEDS: RIVAROXABAN 10 MG TABLET PO (17:38)
[2024-03-21] MEDS: carvediloL 25 MG TABLET PO (21:00)
[2024-03-22 01:13] VITALS: BP 123/73; PULSE 64; RESP 16; TEMP 36; O2SAT 95
[2024-03-22 04:51] VITALS: BP 125/72; PULSE 57; RESP 16; TEMP 36.4; O2SAT 97
[2024-03-22] MEDS: LEVOTHYROXINE SODIUM 75 MCG TABLET PO (05:44)
[2024-03-22 06:30] LABS: Basophils Percent Auto 0.1 % (0.2-1.2); Eosinophils Percent Auto 0.1 % (0-4.4); Hematocrit 32.3 % (42.0-52.0); Hemoglobin 10.5 g/dL (14.0-18.0); Immature Granulocyte Absolute 0.03 K/mm3 (0.00-0.031); Immature Granulocyte Percent A 0.4 % (0-0.5); Lymphocytes Absolute Auto 0.64 K/mm3 (0.9-3.2); Lymphocytes Percent Auto 8.7 % (18.3-44.2); Mean Corpuscular HGB Conc 32.5 g/dl (32-36); Mean Corpuscular Hemoglobin 30.9 pg (26-34); Mean Platelet Volume 8.9 fl (7.4-10.4); Monocytes Absolute Auto 0.8 K/mm3 (0.1-0.6); Monocytes Percent Auto 11.1 % (2.6-8.5); Neutrophils Absolute Auto 5.8 K/mm3 (1.3-6.7); Neutrophils Percent Auto 79.6 % (45.5-73.1); Platelet Count Result 154 k/mm3 (150-375); Red Cell Distribution Width 12.9 % (11.5-14.5); White Blood Count 7.3 K/mm3 (4.5-10.0)
--- NOTE | 2024-03-22 06:40 | PM.PNORT ---
Progress Note: A&P Assessment and Plan (1) Osteoarthritis of right knee: Code(s): M17.11 - Unilateral primary osteoarthritis, right knee Status: Acute Assessment and Plan: S/P Right Total Knee for osteoarthritis. Will mobilize today. (2) History of knee replacement procedure of right knee: Code(s): Z96.651 - Presence of right artificial knee joint Status: Acute Subjective Subjective Date/Time Seen: 03/22/24 06:40 Post Op day: 1 Principal diagnosis: Right Total Knee Review of Systems Musculoskeletal: Musculoskeletal: Reports myalgias, Reports arthralgias and Reports joint swelling Exam Narrative: NVI Dressing intact Pain with motion Objective Data Vital Signs Vital Signs: Vital Signs - 24 hr 03/21/24 07:12 03/21/24 10:13 03/21/24 10:25 Temperature 97.8 F 97.9 F Pulse Rate 57 L 59 L 65 Respiratory Rate 16 16 17 Blood Pressure 167/89 H 160/90 H 154/80 H Pulse Oximetry 100 92 97 Oxygen Delivery Room Air Simple Face Mask Simple Face Mask Oxygen Flow Rate 8 8 03/21/24 10:40 03/21/24 10:55 03/21/24 11:10 Temperature Pulse Rate 64 66 64 Respiratory Rate 9 L 18 10 L Blood Pressure 161/82 H 145/74 H 145/76 H Pulse Oximetry 95 99 94 Oxygen Delivery Simple Face Mask Room Air Room Air Oxygen Flow Rate 6 03/21/24 12:00 03/21/24 12:15 03/21/24 12:45 Temperature 96.9 F L 96.9 F L 97.0 F L Pulse Rate 65 65 60 Respiratory Rate 17 17 17 Blood Pressure 125/79 144/85 H 127/70 Pulse Oximetry 96 95 97 Oxygen Delivery Oxygen Flow Rate 03/21/24 13:28 03/21/24 13:13 03/21/24 11:45 Temperature 97.4 F L Pulse Rate 80 Respiratory Rate 18 Blood Pressure 144/82 H Pulse Oximetry 99 99 Oxygen Delivery Autopap Nasal Cannula Oxygen Flow Rate 0.5 03/21/24 16:45 03/21/24 21:00 03/21/24 20:00 Temperature 96.6 F L Pulse Rate 70 76 76 Respiratory Rate 17 17 Blood Pressure 139/80 Pulse Oximetry 97 97 Oxygen Delivery Room Air Oxygen Flow Rate 03/21/24 21:13 03/22/24 01:13 03/22/24 04:51 Temperature 97.5 F L 96.8 F L 97.5 F L Pulse Rate 75 64 57 L Respiratory Rate 16 16 16 Blood Pressure 146/85 H 123/73 125/72 Pulse Oximetry 97 95 97 Oxygen Delivery Oxygen Flow Rate 03/21/24 12:20 Temperature 96.9 F L Pulse Rate 65 Respiratory Rate 17 Blood Pressure 144/85 H Pulse Oximetry 95 Oxygen Delivery Oxygen Flow Rate Intake/Output Intake/Output: Intake & Output 03/19/24 03/20/24 03/21/24 03/22/24 23:59 23:59 23:59 23:59 Intake Total 2260 250 Output Total 400 200 Balance 1860 50 Meds/Results Medications: Active Medications Generic Name Dose Route Start Last Admin Trade Name Freq PRN Reason Stop Dose Admin Hydrocodone Bitart/Acetaminophen 1 tab 03/21/24 11:28 03/21/24 12:31 Hydrocodone/Acetaminophen (*Crx) 5-325 Mg Tablet PO 1 tab Q4H PRN Administration Pain Rated 4-6 Hydrocodone Bitart/Acetaminophen 1 tab 03/21/24 11:28 03/21/24 21:00 Hydrocodone/Acetaminophen (*Crx) 7.5-325 Mg Tablet PO 1 tab Q4H PRN Administration Pain Rated 7-10 Allopurinol 300 mg 03/22/24 09:00 Allopurinol 300 Mg Tablet PO DAILY [facility] Amlodipine Besylate 5 mg 03/22/24 09:00 Amlodipine Besylate 5 Mg Tablet PO DAILY [facility] Carvedilol 25 mg 03/21/24 21:00 03/21/24 21:00 Carvedilol 25 Mg Tablet PO 25 mg Q12HR STEVE Administration Celecoxib 200 mg 03/21/24 17:00 03/21/24 17:38 Celecoxib 200 Mg Capsule PO 200 mg BIDWM STEVE Administration Cyclobenzaprine HCl 10 mg 03/21/24 11:28 Cyclobenzaprine Hcl 10 Mg Tablet PO HS PRN muscle spasm Diphenhydramine HCl 25 mg 03/21/24 11:28 Diphenhydramine Hcl Inj 50 Mg/Ml Vial IV PUSH Q6H PRN Itching Hydromorphone HCl 1 mg 03/21/24 11:28 Hydromorphone Hcl Inj (*Crx) 1 Mg/Ml Syr IV PUSH Q2H PRN Breakthrough Pain Rated 7-10 or NPO Hydromorphone HCl 0.5 mg 03/21/24 11:28
[2024-03-22 06:44] LABS: Alanine Aminotransferase 13 U/L (6-50); Albumin Level 3.4 g/dL (3.5-5.1); Alkaline Phosphatase 77 U/L (38-126); Aspartate Amino Transferase 22 U/L (17-59); Bilirubin,Total 0.4 mg/dL (0.2-1.3); Magnesium 1.8 mg/dL (1.6-2.3)
[2024-03-22 06:45] LABS: Anion Gap 6 mmol/L (4-12); Blood Urea Nitrogen 20 mg/dL (9-20); Calcium 8.2 mg/dL (8.4-10.2); Carbon Dioxide 25 mmol/L (22-30); Chloride 106 mmol/L (98-107); Estimated CRCL calculation 47 ml/min; Estimated Glomerular Filt Rate 37; Glucose 135 mg/dL (65-110); Potassium 4.4 mmol/L (3.4-5.0); Sodium 137 mmol/L (137-145)
[2024-03-22 07:39] LABS: Thyroid Stimulating Hormone Reflex 0.581 uIU/mL (0.465-4.68)
[2024-03-22 08:00] VITALS: BP 141/83; PULSE 60; RESP 20; TEMP 35.8; O2SAT 97
[2024-03-22 08:18] VITALS: PULSE 63
[2024-03-22] MEDS: ROSUVASTATIN 5 MG TABLET PO (08:18)
[2024-03-22] MEDS: CELECOXIB 200 MG CAPSULE PO (08:18)
[2024-03-22] MEDS: carvediloL 25 MG TABLET PO (08:18)
[2024-03-22] MEDS: PANTOPRAZOLE 40 MG TABLET PO (08:18)
[2024-03-22] MEDS: allopurinoL 300 MG TABLET PO (08:19)
[2024-03-22] MEDS: HYDROcodone/acetaminophen (*CRX) 7.5-325 MG TABLET 1 TAB PO ×2 (08:19→14:52)
[2024-03-22] MEDS: amLODIPine BESYLATE 5 MG TABLET PO (08:19)
[2024-03-22] MEDS: ceFAZolin 2 GM/D5W 50 ML 2 GM/50 ML BAG IVPB (08:20)
[2024-03-22] MEDS: ramipriL 5 MG CAPSULE 10 MG PO (08:23)
--- NOTE | 2024-03-22 08:55 | P.PNAN_ITS ---
Anes - Prog Note Post-Op Date/Time: 03/22/24 08:55 Cardiovascular status: normal Respiratory status: normal Airway patency: baseline Mental status: baseline Post-Op hydration status: normal Vital Signs: Last Vital Signs Temp 36.2 C L 03/22/24 08:00 Pulse 63 03/22/24 08:18 Resp 18 03/22/24 08:00 BP 122/64 03/22/24 08:00 Pulse Ox 94 03/22/24 08:00 O2 Del Method Room Air 03/21/24 20:00 O2 Flow Rate 0.5 03/21/24 11:45 Pain Score (VAS): 2 I/O: Intake & Output 03/21/24 03/22/24 03/22/24 23:59 07:59 15:59 Intake Total 720 250 Output Total 200 200 Balance 520 50 Laboratory Tests 03/22/24 06:12 03/22/24 06:12 03/22/24 03/22/24 06:12 06:13 WBC 7.3 RBC 3.40 L Hgb 10.5 L D Hct 32.3 L MCV 95.0 MCH 30.9 MCHC 32.5 RDW 12.9 Plt Count 154 MPV 8.9 Immature Gran % (Auto) 0.4 Neut % (Auto) 79.6 H Lymph % (Auto) 8.7 L [place] % (Auto) 11.1 H Eos % (Auto) 0.1 Baso % (Auto) 0.1 L Lymph # (Auto) 0.64 L [place] # (Auto) 0.8 H Eos # (Auto) 0.0 Baso # (Auto) 0.0 Abs Immat Gran (auto) 0.03 Absolute Neuts (auto) 5.8 Absolute Nucleated RBC 0.000 Nucleated RBC % 0.0 Sodium 137 Potassium 4.4 Chloride 106 Carbon Dioxide 25 Anion Gap 6 BUN 20 Creatinine 1.80 H Estim Creat Clear Calc 47 Estimated GFR 37 L Glucose 135 H Calcium 8.2 L Magnesium 1.8 Total Bilirubin 0.4 Direct Bilirubin 0.0 AST 22 ALT 13 Alkaline Phosphatase 77 Total Protein 6.0 L Albumin 3.4 L TSH (Reflex) 0.581 Post-procedural complaints: none Patient Feedback: Patient satisfied with anesthetic care.
[2024-03-22 12:00] VITALS: BP 101/53; PULSE 58; RESP 18; TEMP 36.3; O2SAT 100
--- NOTE | 2024-03-22 13:43 | PM.DS ---
DS: Admitting Diagnosis Discharge Date 03/22/2024 Admitting Diagnosis Osteoarthritis right knee from scheduled for total knee arthroplasty. DS: Discharge Diagnosis Discharge Diagnosis (1) History of knee replacement procedure of right knee: Code(s): Z96.651 - Presence of right artificial knee joint Status: Acute Assessment and Plan: Patient underwent total knee arthroplasty right. This was for osteoarthritis right knee. He has done well and has progressed in therapy and can be dismissed home today. DS: Summary Hospital Course Hospital Course: Patient underwent total knee arthroplasty right for osteoarthritis. He has progressed reasonably well and can be dismissed today. Dismiss of the case medication [place] Xarelto and and doxycycline. Follow up 10 to 14 days for sutures out. Status at Discharge Functional status at discharge: uses cane/walker Time Spent with Patient Time attestation: Total time spent providing and/or coordinating discharge services: Exam Narrative: On exam his dressing is intact he is wiggling his toes well he is able to ambulate. Neurologically appears to be grossly intact. DS: Data Data Completed and Pending Labs on day of discharge: Labs from last 24 hours 03/22/24 03/22/24 06:13 06:12 WBC 7.3 RBC 3.40 L Hgb 10.5 L D Hct 32.3 L MCV 95.0 MCH 30.9 MCHC 32.5 RDW 12.9 Plt Count 154 MPV 8.9 Immature Gran % (Auto) 0.4 Neut % (Auto) 79.6 H Lymph % (Auto) 8.7 L [place] % (Auto) 11.1 H Eos % (Auto) 0.1 Baso % (Auto) 0.1 L Lymph # (Auto) 0.64 L [place] # (Auto) 0.8 H Eos # (Auto) 0.0 Baso # (Auto) 0.0 Abs Immat Gran (auto) 0.03 Absolute Neuts (auto) 5.8 Absolute Nucleated RBC 0.000 Nucleated RBC % 0.0 Sodium 137 Potassium 4.4 Chloride 106 Carbon Dioxide 25 Anion Gap 6 BUN 20 Creatinine 1.80 H Estim Creat Clear Calc 47 Estimated GFR 37 L Glucose 135 H Calcium 8.2 L Magnesium 1.8 Total Bilirubin 0.4 Direct Bilirubin 0.0 AST 22 ALT 13 Alkaline Phosphatase 77 Total Protein 6.0 L Albumin 3.4 L TSH (Reflex) 0.581 Discharge Plan Discharge Patient Disposition: Home, Self-Care Discharge Instructions: Dr. Harsha Spence M.D [address] [place] [address] POST-OPERATIVE DISCHARGE INSTRUCTIONS TOTAL KNEE ARTHROPLASTY 1. When resting, do not rest in the chair.When resting, lie on your back, with back flat on the couch or bed, with leg elevated above heart to minimize swelling. You may put a pillow under your head. . Significant swelling could indicate a blood clot and if this occurs call the office (or go to the ER) to have a venous ultrasound. Therefore, do not rest in a chair. 2. At least five times a day spend several minutes stretching your knee into flexion while sitting in the chair and also stretching your knee out straight The abilities to bend your knee fulling and straighten your knee fully are two most important knee functions to focus on during your recovery. 3. It is ok to sit in chair to eat, use the toilet and receive a guest and to do your stretching exercises, but, sitting in a chair will cause your leg to swell. Therefore, avoid additional time sitting in the chair. and don't rest in the chair. 4. Wound Care: Nursing will give you an additional Mepilex dressing at the time of discharge. Patient to remove the dressing and apply a new Mepilex dressing at home 7 days after surgery and leave the dressing on until seen in office. 5. May shower with a Mepilex dressing in place.The water will run off the dressing. 6. Unless you are told otherwise, you may put full weight on your operated leg. Use a walker for balance and practice walking as normally as you can, ideally for a few minutes every hour while you are awake. 7. I would advise against putting ice packs on your knee incision. Ice constricts blood flow which can im
== END 2024-03-22 15:05 | disposition home or self-care (01) ==
LOC: ANHSURGERY 05:55 → ANH3MEDSUR 11:55
PROVIDERS: Physician Assistant; PCP Internal Medicine; Visit Provider Orthopaedic Surgery
PROC: (CPT 27447; principal; 2024-03-21 07:30)
DX: M17.11 Unilateral primary osteoarthritis, right knee (principal); G89.18 Other acute postprocedural pain; I10 Essential (primary) hypertension; E78.5 Hyperlipidemia, unspecified; E03.9 Hypothyroidism, unspecified; G47.33 Obstructive sleep apnea (adult) (pediatric); K21.9 Gastro-esophageal reflux disease without esophagitis; E66.9 Obesity, unspecified; Z68.37 Body mass index [BMI] 37.0-37.9, adult
CPT/HCPCS: 27447; 64447; 36415; 73560; 80048; 80076; 82565; 83735; 84443; 85025; 85610; 85730; 86850; 86900; 86901; 97110; 97116; 97161; 97165; 97530; 97535; A9270; C1713; C1776; J0171; J0690; J1100; J1170; J1885; J2250; J2270; J2405; J2704; J2795; J3010; J3370; J7120

== ENCOUNTER 2024-04-29 12:30 | Outpatient (RCR) | payer MEDICARE, SELFPAY ==
--- NOTE | 2024-03-28 14:27 | OPREHPOC ---
Outpatient Therapy Plan of Care This is a Multidisciplinary Plan of Care that may contain components documented by all disciplines (PT, OT, and ST.) PT Problem 1 PT Problem #1 Knowledge Deficit PT Goal 1 Goal *indep with HEP * correct gait pattern with assistive device Target Visit 10 PT Problem 2 PT Problem #2 Pain PT Goal 1 Goal 1* pain rating at worst of 5/10 2* self assessment LE functional scale of 60% limitation in activity level 3* pt report with sleeping awaken 2x/night due to pain Target Visit 10 PT Problem 3 PT Problem #3 Impaired Flexibility PT Goal 1 Goal increase R knee ROM, to improve gait pattern and transfer skills sit/stand sitting active motion 1* extension 0' 2* flexion 100' Target Visit 10 PT Problem 4 PT Problem #4 Impaired Strength PT Goal 1 Goal increase strength of R LE to improve mobility and gait skills 1* sit/stand with use of 1 UE x 5 reps 2* perform 20 reps of mat strengthening exercises Target Visit 10 PT Problem 5 PT Problem #5 Impaired Functional Mobility PT Goal 1 Goal 1* 2 minute walking test distance of 200' with assistive device 2* up/down 4 steps with one hand railing, indep, with alternating step pattern
--- NOTE | 2024-03-28 14:27 | PTOPEVAL1 ---
Assessment and note entered by Adriana Campos, PT Evaluation Information Assessment Status Evaluation Diagnosis s/p R TKR Onset 03-21-24 Subjective Information since surgery, been lying in bed and ease the pain try to stretch knee and walk, but hurts; taking oxycodone for the pain every 4 hours; girl friend staying with him and helping him; been trying to do the exercises--bend/straighten knee Activity: prior to surgery-- used walker PRN due to knee pain; live with father in law; 2 entry steps with hand railing Reported Pain Level Pain Score Self Report Additional Pain Score Comments pain range of 4-8/10 past few days; whole knee hurts decrease pain: prescription meds, ice, elevation increase pain: standing, walking in home only with sleeping, awaken 4-5 x/night due to knee pain Assessment PT Clinical Summary Ayaan is s/p R TKR, 1 week ago. He has been resting at home and walking short distances in his home. Self assessment LE functional scale is 85% limitation in activity level. Knee pain is awakening him from sleeping 4-5 x/night. With the evaluation: sitting R knee active ROM is (-25') to 70' and supine knee extension (-15'). 2 minute walking test distance with walker is 60'; with supine exercises, he performed 7-10 reps and reported increased pain. Skilled PT services are indicated for modalities to decrease pain; therapeutic exercises to increase R knee ROM and strength, gait and mobility skills, with education to progress HEP and gait to lesser assistive device as able. Plan of Care Interventions Electrical Stimulation,Gait Training,Hot Pack/Cold Pack,Manual Therapy,Neuro Re-education,Patient/ Caregiver Education,Therapeutic Activities, Therapeutic Exercise,Other Other Interventions taping PT Services Indicated Yes Treatment Frequency and 2x/wk for 10 visits Duration These treatments will address the objective and functional deficits as defined above. The patient will be advanced safely and appropriately in order for the patient to progress towards his/her prior level of function. Additional exercises will
--- NOTE | 2024-04-08 12:50 | PCPTNOTE ---
No call, No show reason unknown. AKS
--- NOTE | 2024-04-12 15:52 | PCPTNOTE ---
Cancelled, out of town.
--- NOTE | 2024-04-29 13:24 | PTOPDC ---
Assessment and note entered by Adriana Campos, PT Discharge Information Assessment Status Discharge Diagnosis s/p R TKR Onset 03-21-24 Subjective Information knee is doing good, only little stiffness now; walking better; doing everything but yard work-- too hot and do not want to get on the roof to get limbs down; Reported Pain Level Pain Score Self Report Additional Pain Score Comments pain range in the past week 1-2/10; pain over anterior knee; no awakening from sleeping due to pain; is able to walk as much as I need to walk--walk dog, go to grocery store; take prescription med PRN, not every day, about every 2-3 days lately Assessment PT Clinical Summary Ayaan has received 8 PT sessions. Compared to the initial evaluation: pain has decreased to 1-2/10; is able to sleep through the night without awakening due to pain; increase strength and ROM of R knee; is walking without an assistive device, slight limp on R LE; with 2 minute walking test distance of 430'; is able to perform steps with one hand railing and alternate step pattern; education completed for HEP. R knee active ROM (-5') to 110'. The goals were achieved, except extension ROM to 0'. Discharge PT. He is to continue with the exercises at home. Plan of Care PT Services Indicated No
== END 2024-04-29 14:17 | disposition home or self-care (01) ==
LOC: ANHPT 12:30
PROVIDERS: PCP Internal Medicine; Visit Provider Orthopaedic Surgery
DX: Z47.1 Aftercare following joint replacement surgery (principal); Z96.651 Presence of right artificial knee joint
CPT/HCPCS: 97014; 97016; 97110; 97116; 97161; 97530; G0283

== ENCOUNTER 2024-05-23 15:11 | Emergency (ER) | payer MEDICARE, SELFPAY ==
--- NOTE | ~2024-05-23 | XR_ITS ---
EXAM: XR wrist RT min 3V, XR hand RT 2V DATE: 05/23/2024 16:02 HISTORY: injury, PT STATES SWELLING TO WRIST . COMPARISON: None available. FINDINGS: Normal mineralization. No fracture or dislocation. No lytic or blastic lesion. Polyarticul ar arthritis, severe at the first CMC joint and DRUJ. No erosion or periosteal change. Soft tissues w ithin normal limits. IMPRESSION: No acute osseous finding in the right hand or wrist. Reviewed, dictated and finalized at location K. IMPRESSION: No acute osseous finding in the right hand or wrist.
--- NOTE | ~2024-05-23 | CT_ITS ---
CT brain wo con Ordering provider: Fouzia Figueroa PA-C History: 68 years Male with . fall, hi . Comparison: None. Technique: CT of the head without contrast. Radiation reduction technique utilized. The dose-length product was 681 mGy-cm. FINDINGS: BRAIN PARENCHYMA AND CSF SPACES: No midline shift, mass effect or hemorrhage. The brain parenchyma a nd CSF spaces are otherwise normal. VISUALIZED PARANASAL SINUSES: Well aerated. MASTOIDS: Well aerated. BONES: The bones appear intact. SOFT TISSUES: Visualized nasopharynx is normal. Superficial soft tissues are normal. IMPRESSION: No acute intracranial findings. Reviewed, dictated and finalized at location A.
[2024-05-23 15:31] VITALS: BP 117/66; PULSE 60; RESP 18; TEMP 36.6; O2SAT 98
--- NOTE | 2024-05-23 15:59 | ED.UPPEXIN ---
HPI - Extremity Injury (Upper) General Chief Complaint: Extremity Injury, Upper Stated Complaint: right hand injury Time Seen by Provider: 05/23/24 16:00 Source: patient Mode of arrival: ambulatory Limitations: no limitations History of Present Illness HPI narrative: patient is a 68-year-old male who presents the ED with report of right hand pain. Patient reports he slipped and fell while working on the [employer] [place] [employer] yesterday and attempted to catch himself with his right hand. He hit down on the ground with his right hand with his fingers on strange. Complains of pain to his right hand and wrist since then. He did also hit is head. denied LOC. No dizziness, lightheadedness, vision changes, nausea. Denies numbness. Denies focal weakness. Patient took Tylenol prior to arrival. Related Data Allergies Allergy/AdvReac Type Severity Reaction Status Date / Time No Known Allergies Allergy Verified 05/23/24 15:39 Review of Systems Review of Systems: All systems reviewed & are unremarkable except as noted in HPI. All systems reviewed & are unremarkable except as noted in HPI and below PMFSH Past Medical History Medical History Abdominal cyst Depression Gastro-esophageal reflux disease without esophagitis Gout Hyperlipidemia Hypertension Hypothyroidism Obstructive sleep apnea Obstructive sleep apnea on CPAP Osteoarthritis Stage 3b chronic kidney disease Surgical History Surgical History History of arthroplasty of left knee (11/2014) History of arthroplasty of right knee (03/21/24) History of bilateral carpal tunnel release History of tonsillectomy Family History Family History Father Family history of lung cancer, Onset Age: 56 Patient's father is Mother Family history of dementia Family history of heart disease in male family member before age 55 Alzheimers disease Sibling No problems noted. Social History Social History Social History: Surrogate medical decision maker: Sean Michaels. Code status: Full code. Smoking status: Never smoker Second hand tobacco smoke exposure: Yes ( was a smoker) Alcohol intake: never Substance use: never Substance use type: does not use Do You Feel Safe in your Home?: Yes Lack of Transportation: No Lack of Food: Never True Current Housing: I Have Housing Concerned About Future Housing: No Difficulty Paying Gas/Electric Bills: No Difficulty Paying for Meds: No Currently Unemployed: No Education: High School Diploma/GED Difficulty w/ Childcare or Family Care: No Living arrangements: with family Occupation/Education: retired Additional occupation/education comments: [employer] Gender identity (if verbalized by the patient): Male Spiritual care concerns: No Exam Narrative: GENERAL: Elderly, obese with BMI of 32.3, non-toxic, in no acute distress. HEAD: Normocephalic, atraumatic. RESPIRATORY: Airway patent, respirations nonlabored. CARDIOVASCULAR: Regular rate and rhythm without murmurs, rubs, or gallops. Radial pulses intact. MUSCULOSKELETAL: Moves all extremities. No gross deformities. Mild tenderness to palpation over dorsal right hand in area of distal 3rd and 4th metacarpals. Mild swelling noted. Mild limited range of motion of finger flexion due to pain. Sensation intact to all fingers. Capillary refill intact. SKIN: Warm, dry, normal color. NEURO: A&O X3. Speech clear. Cranial nerves II-XII grossly intact. Steady gait. No ataxic movements. PSYCHIATRIC: Appropriate mood and affect. Normal interaction. Course Vital Signs Vital signs: Vital Signs Temperature 97.8 F 05/23/24 15:31 Pulse Rate 60 05/23/24 15:31 Respir
[2024-05-23 16:05] VITALS: BP 109/67; PULSE 63; RESP 16; O2SAT 97
[2024-05-23] MEDS: traMADol HCL (*CRX) 50 MG TABLET PO (16:06)
[2024-05-23 17:27] VITALS: BP 114/74; PULSE 61; RESP 15; TEMP 36.9; O2SAT 95
== END 2024-05-23 17:29 | disposition home or self-care (01) ==
PROVIDERS: Emergency Provider Physician Assistant; PCP Internal Medicine
DX: S09.90XA Unspecified injury of head, initial encounter (principal); S63.91XA Sprain of unspecified part of right wrist and hand, initial encounter; F32.A Depression, unspecified; K21.9 Gastro-esophageal reflux disease without esophagitis; E78.5 Hyperlipidemia, unspecified; E03.9 Hypothyroidism, unspecified; G47.30 Sleep apnea, unspecified; M19.90 Unspecified osteoarthritis, unspecified site; I12.9 Hypertensive chronic kidney disease with stage 1 through stage 4 chronic kidney disease, or unspecified chronic kidney disease; N18.32 Chronic kidney disease, stage 3b; W01.0XXA Fall on same level from slipping, tripping and stumbling without subsequent striking against object, initial encounter
CPT/HCPCS: 70450; 73110; 73120; 99284; A9270

== ENCOUNTER 2024-06-07 20:11 | Emergency (ER) | payer MEDICARE, SELFPAY ==
[2024-06-07 20:14] VITALS: BP 170/84; PULSE 71; RESP 16; TEMP 36.8; O2SAT 100
--- NOTE | 2024-06-07 20:27 | ED.GENADULT ---
HPI - General Adult General Chief complaint: Ear Stated complaint: ear pain Time Seen by Provider: 06/07/24 20:17 History of Present Illness HPI narrative: This is a 68-year-old male concerned about having bugs in his ears. His was diagnosed and treated with scabies several weeks ago. He has now developed itching in his right ear and on the back of his right leg. No other complaints Related Data Allergies Allergy/AdvReac Type Severity Reaction Status Date / Time No Known Allergies Allergy Verified 06/07/24 20:15 [facility] Past Medical History Medical History Abdominal cyst Depression Gastro-esophageal reflux disease without esophagitis Gout Hyperlipidemia Hypertension Hypothyroidism Obstructive sleep apnea Obstructive sleep apnea on CPAP Osteoarthritis Stage 3b chronic kidney disease Surgical History Surgical History History of arthroplasty of left knee (11/2014) History of arthroplasty of right knee (03/21/24) History of bilateral carpal tunnel release History of tonsillectomy Family History Family History Father Family history of lung cancer, Onset Age: 56 Patient's father is Mother Family history of dementia Family history of heart disease in male family member before age 55 Alzheimers disease Sibling No problems noted. Social History Social History Social History: Surrogate medical decision maker: Sean Michaels. Code status: Full code. Smoking status: Never smoker Second hand tobacco smoke exposure: Yes ( was a smoker) Alcohol intake: never Substance use: never Substance use type: does not use Do You Feel Safe in your Home?: Yes Lack of Transportation: No Lack of Food: Never True Current Housing: I Have Housing Concerned About Future Housing: No Difficulty Paying Gas/Electric Bills: No Difficulty Paying for Meds: No Currently Unemployed: No Education: High School Diploma/GED Difficulty w/ Childcare or Family Care: No Living arrangements: with family Occupation/Education: retired Additional occupation/education comments: [employer] Gender identity (if verbalized by the patient): Male Spiritual care concerns: No Exam Narrative: APPEARANCE: No apparent distress. Head: Exam of the right ear showed some dry skin in the pinna, knows the evidence of otitis externa, otitis media or infestation. EYES: EOMI, NOSE: Atraumatic NECK: Trachea midline RESPIRATORY: No increased rate of breathing CARDIOVASCULAR: RRR, ABDOMINAL: Non-distended MUSCULOSKELETAl: No obvious deformities NEURO: Alert. Moving 4/4 extremities SKIN:: Dry skin with excoriation over the back of the right calf PSYCHIATRIC: Normal affect Course Vital Signs Vital signs: Vital Signs Temperature 98.2 F 06/07/24 20:14 Pulse Rate 71 06/07/24 20:14 Respiratory Rate 16 06/07/24 20:14 Blood Pressure 170/84 H 06/07/24 20:14 Pulse Oximetry 100 06/07/24 20:14 Oxygen Delivery Room Air 06/07/24 20:14 Temperature 98.2 F 06/07/24 20:14 Pulse Rate 71 06/07/24 20:14 Respiratory Rate 16 06/07/24 20:14 Blood Pressure 170/84 H 06/07/24 20:14 Pulse Oximetry 100 06/07/24 20:14 Oxygen Delivery Room Air 06/07/24 20:[address] [facility] Narrative Medical decision making narrative: -Course: 68-year-old male presenting with concerns about scabies infection. His ear exam is unremarkable outside of some dry skin in the pinna. Does have some dry skin and excoriation over the back was cap that could be caused by scabies. Patient will be treated with permethrin. Patient discharged primary care follow-up -DDX includes but is not limited to: Dry skin, scabies infection, dermatitis, ecze
== END 2024-06-07 21:18 | disposition home or self-care (01) ==
LOC: ANHED 21:04
PROVIDERS: Emergency Provider Emergency Medicine; PCP Internal Medicine
DX: B86 Scabies (principal); I12.9 Hypertensive chronic kidney disease with stage 1 through stage 4 chronic kidney disease, or unspecified chronic kidney disease; N18.32 Chronic kidney disease, stage 3b; E78.5 Hyperlipidemia, unspecified; E03.9 Hypothyroidism, unspecified; K21.9 Gastro-esophageal reflux disease without esophagitis; G47.33 Obstructive sleep apnea (adult) (pediatric); M10.9 Gout, unspecified; M19.90 Unspecified osteoarthritis, unspecified site; Z96.653 Presence of artificial knee joint, bilateral; Z77.22 Contact with and (suspected) exposure to environmental tobacco smoke (acute) (chronic)
CPT/HCPCS: 99283

== ENCOUNTER 2024-08-31 14:35 | Outpatient (CLI) | payer MEDICARE, SELFPAY ==
--- NOTE | ~2024-08-31 | XR_ITS ---
3 VIEWS LUMBAR SPINE Ordering provider: Jeronimo Polo DO History: . M54.9 - Dorsalgia, unspecified . Comparison: None. FINDINGS: VERTEBRAL BODIES: No visible fracture or subluxation. Degenerative changes of the spine. DISK SPACES: Severe narrowing of the disc spaces L1-L2, L2-3, and L3-4. Moderate narrowing of the dis c L5-S1. Slight narrowing of the disc L4-L5. Multilevel facet joint disease. SOFT TISSUES: Normal. IMPRESSION: No acute osseous abnormality lumbar spine. Multilevel degenerative disc disease. Reviewed, dictated and finalized at location A. [employer]
== END 2024-08-31 14:36 | disposition home or self-care (01) ==
PROVIDERS: PCP Internal Medicine; Visit Provider Internal Medicine
DX: M54.9 Dorsalgia, unspecified (principal); G89.29 Other chronic pain
CPT/HCPCS: 72100

== ENCOUNTER 2024-12-30 14:46 | Outpatient (CLI) | payer MEDICARE, SELFPAY ==
--- NOTE | ~2024-12-30 | MR_ITS ---
EXAMINATION: MR abdomen wo/w con DATE: 12/30/2024 16:08 INDICATION: Cyst of pancreas. TECHNIQUE: Magnetic resonance imaging (MRI) of the abdomen was performed without and with 20 mL Multi Kelly intravenous contrast. COMPARISON: CT abdomen 02/25/2024 FINDINGS: The liver is normal. There are gallstones in the gallbladder, which is normal in size. The spleen is normal. There is a 2.5 cm cystic lesion with thin septations in the tail of the pancreas. The pancrea tic duct is normal in caliber. The adrenal glands are normal. There is mild atrophy of the kidneys. T here are cysts in the kidneys measuring up to 4.7 cm on the left. There is a 17 mm hemorrhagic cyst i n right kidney. There are no dilated loops of bowel. There are no pathologically enlarged lymph nodes . There is no ascites. IMPRESSION: 1. Low-risk 2.5 cm cystic lesion of the pancreas, stable from 02/25/2024. The differential diagnosis i ncludes pseudocyst, intraductal papillary mucinous neoplasm (IPMN), mucinous cystic neoplasm (MCN), s erous cystadenoma, and neuroendocrine tumor. Abdomen MRI without and with contrast is recommended in 6 months. Reviewed, dictated and finalized at location A. IMPRESSION: 1. Low-risk 2.5 cm cystic lesion of the pancreas, stable from 02/25/2024. The di fferential diagnosis includes pseudocyst, intraductal papillary mucinous neopla sm (IPMN), mucinous cystic neoplasm (MCN), serous cystadenoma, and neuroendocri ne tumor. Abdomen MRI without and with contrast is recommended in 6 months.
== END 2024-12-30 14:47 | disposition home or self-care (01) ==
LOC: MICIMG 14:47
PROVIDERS: PCP Internal Medicine; Visit Provider Internal Medicine
DX: K86.2 Cyst of pancreas (principal)
CPT/HCPCS: 74183